=== PATIENT | female | born 1990 | race Caucasian/White ===

== ENCOUNTER 2017-12-08 08:48 | Emergency (ER) | payer BC, SELFPAY ==
[2017-12-08 09:05] VITALS: BP 109/72; PULSE 68; RESP 20; TEMP 36.8; O2SAT 100; BMI 23.3
--- NOTE | 2017-12-08 09:13 | HMH.EDUTC ---
[facility] [place] Impression: URI (upper respiratory infection) Qualifiers: URI type: unspecified URI Qualified Code(s): J06.9 - Acute upper respiratory infection, unspecified Disposition: Home, Self-Care Condition on Discharge: Good Instructions: Sore Throat, DI for Cough -- Adult Additional Instructions: * Monitor Temp. Tylenol and/or Ibuprofen as needed. ER if fever is no less than 101 despite alternating Tylenol and Ibuprofen * Encourage fluids, water, Gatorade, powerade, pedialyte if /toddler/or child * Warm salt water gargles for throat irritation *Warm fluids *Sore throat lozenges *Sleep elevated *humidifier or vaporizer Lots of rest Increase fluids, water, Gatorade, powerade *Flonase 2 sprays each nostril daily but may take 2-3 days to notice improvement with it *Bromfed may cause drowsiness. Know how it effect you or your child. Before driving, caring for small children or sending your child to school *Your throat swab was sent to lab for culture. Those results area typically sent to your primary care physician. Be sure to follow up in 2-3 days if no improvement so they can review those results and treat if necessary If you dont have primary care I recommend you get one, but in the mean time you will have to return to a walk in clinic Follow up IMMEDIATELY for new or worsening of symptoms OR no noticeable improvement over the next 48-72 hours. 911 immediately for any life threatening symptoms such as chest pain or difficulty breathing Prescriptions: Brompheniramine/Pseudoephed/Dm [Bromfed DM Cough Syrup 5mL] 10 ml PO Q4HP PRN #300 ml PRN Reason: Cough Azithromycin [Z-Pacheco 250mg Tab] 250 mg PO UD DOSE PK #6 tab Fluticasone Propionate [Flonase 50mcg nasal spray 16gm] 2 spr NS DAILY #1 bottle predniSONE [Prednisone 20mg Tab] 20 mg PO BID #10 tab Forms: Work/School Release Time of Disposition: 09:20 Medical Decision Making - Medical Records Medical records reviewed: Yes: I reviewed the patient's medical records. Vital Signs: 12/08/17 09:05 Temperature 98.2 F Temperature Source Temporal Artery Scan Pulse Rate [Right] 68 Respiratory Rate 20 Blood Pressure [Right Arm] 109/72 Blood Pressure Mean [Right Arm] 84 Blood Pressure Source [Right Arm] Automatic Cuff Blood Pressure Position [Right Arm] Sitting 02 Sat by Pulse Oximetry 100 Oxygen Delivery Method Room Air - Michele Inquiry Pt receiving controlled substance: No Michele was queried for this patient: No [facility] [place] - General Stated complaint: sore throat Mode of Arrival: Ambulatory Source of Information: Patient Limitations: No Limitations Description of Symptoms (Recalled from Triage Doc. by RN): sore throat x3 days HEENT Symptoms (Recalled from RN notes): Yes Resp Symptoms (Recalled from RN notes): No Skin Symptoms (Recalled from RN notes): No MS Symptoms (Recalled from RN notes): No Functional Status (Recalled from RN notes): n - History of Present Illness Provider Complaint: Patient state that her son tested positive for strep throat last week State that for the last three day she has had a sore scratchy throat State that her throat feels raw and irritated states that she noticed it seems worse at night and been having some sinus drainage States don't thinks she has had a fever but has had chills - Related Data Previous Rx's Medication Instructions Recorded Azithromycin [Z-Pacheco 250mg Tab] 250 mg PO UD DOSE PK #6 tab 12/08/17 Brompheniramine/Pseudoephed/Dm 10 ml PO Q4HP PRN #300 ml 12/08/17 [Bromfed DM Cough Syrup 5mL] Fluticasone Propionate [Flonase 2 spr NS DAILY #1 bottle 12/08/17 50mcg nasal spray 16gm] predniSONE [Prednisone 20mg 20 mg PO BID #10 tab 12/08/17 Tab] Allergies Allergy/AdvReac Type Severity Reaction Status Date / Time No Known Allergies Allergy Verified 12/08/17 09:08 - Worker's Comp Is this a Worker's Comp case?: No [facility] History I have reviewed the patient's past medical his
--- NOTE | 2017-12-08 09:16 | ED_ITS ---
[facility] [place] Clinical Impression: URI (upper respiratory infection) Qualifiers: URI type: unspecified URI Qualified Code(s): J06.9 - Acute upper respiratory infection, unspecified Disposition: Home, Self-Care Condition on Discharge: Good Instructions: Sore Throat, DI for Cough -- Adult Additional Instructions: * Monitor Temp. Tylenol and/or Ibuprofen as needed. ER if fever is no less than 101 despite alternating Tylenol and Ibuprofen * Encourage fluids, water, Gatorade, powerade, pedialyte if /toddler/or child * Warm salt water gargles for throat irritation *Warm fluids *Sore throat lozenges *Sleep elevated *humidifier or vaporizer Lots of rest Increase fluids, water, Gatorade, powerade *Flonase 2 sprays each nostril daily but may take 2-3 days to notice improvement with it *Bromfed may cause drowsiness. Know how it effect you or your child. Before driving, caring for small children or sending your child to school *Your throat swab was sent to lab for culture. Those results area typically sent to your primary care physician. Be sure to follow up in 2-3 days if no improvement so they can review those results and treat if necessary If you don? t have primary care I recommend you get one, but in the mean time you will have to return to a walk in clinic Follow up IMMEDIATELY for new or worsening of symptoms OR no noticeable improvement over the next 48-72 hours. 911 immediately for any life threatening symptoms such as chest pain or difficulty breathing Prescriptions: Brompheniramine/Pseudoephed/Dm [Bromfed DM Cough Syrup 5mL] 10 ml PO Q4HP PRN # 300 ml PRN Reason: Cough Azithromycin [Z-Pacheco 250mg Tab] 250 mg PO UD DOSE PK #6 tab Fluticasone Propionate [Flonase 50mcg nasal spray 16gm] 2 spr NS DAILY #1 bottle predniSONE [Prednisone 20mg Tab] 20 mg PO BID #10 tab Forms: Work/School Release Time of Disposition: 09:20 Medical Decision Making - Medical Records Medical records reviewed: Yes: I reviewed the patient's medical records. Vital Signs: 12/08/17 09:05 Temperature 98.2 F Temperature Source Temporal Artery Scan Pulse Rate [Right] 68 Respiratory Rate 20 Blood Pressure [Right Arm] 109/72 Blood Pressure Mean [Right Arm] 84 Blood Pressure Source [Right Arm] Automatic Cuff Blood Pressure Position [Right Arm] Sitting 02 Sat by Pulse Oximetry 100 Oxygen Delivery Method Room Air - Michele Inquiry Pt receiving controlled substance: No Michele was queried for this patient: No [facility] [place] - General Stated complaint: sore throat Mode of Arrival: Ambulatory Source of Information: Patient Limitations: No Limitations Description of Symptoms (Recalled from Triage Doc. by RN): sore throat x3 days HEENT Symptoms (Recalled from RN notes): Yes Resp Symptoms (Recalled from RN notes): No Skin Symptoms (Recalled from RN notes): No MS Symptoms (Recalled from RN notes): No Functional Status (Recalled from RN notes): n - History of Present Illness Provider Complaint: Patient state that her son tested positive for strep throat last week State that for the last three day she has had a sore scratchy throat State that her throat feels raw and irritated states that she noticed it seems worse at night and been having some sinus drainage States don't thinks she has had a fever but has had chills - Related Data Previous Rx's Medication Instructions Recorded Azithromycin [Z-Pacheco 250mg Tab] 250 mg PO UD DOSE PK #6 tab 12/08/17 Br
[2017-12-08 09:26] VITALS: BP 110/88; PULSE 80; RESP 18; TEMP 37.1
[2017-12-08 10:12] LABS: UTC Strep Screen (Rapid) Negative (Negative)
== END 2017-12-08 09:33 | disposition home or self-care (01) ==
PROVIDERS: Emergency Provider Nurse Practitioner
DX: J06.9 Acute upper respiratory infection, unspecified (principal)
CPT/HCPCS: 87880; 99202

== ENCOUNTER 2021-06-04 14:29 | Emergency (ER) | payer BC, OTHER, SELFPAY ==
[2021-06-04 15:48] VITALS: BP 120/69; PULSE 74; RESP 12; TEMP 36.7; O2SAT 100; BMI 21.9
--- NOTE | 2021-06-04 15:57 | HMH.EDUTC ---
[facility] [place] Disposition Clinical Impression: URI (upper respiratory infection) Qualifiers: URI type: unspecified URI Qualified Code(s): J06.9 - Acute upper respiratory infection, unspecified Disposition: Home, Self-Care Condition on Discharge: Good Instructions: DI for COVID-19 (Suspected or Confirmed ), Coronavirus Disease 2019, Preventing the Spread of Coronavirus Discharge Instructions, Sore Throat Additional Instructions: *Monitor Temp, Over the counter Motrin or Tylenol as directed/as needed Tylenol every 4 hours and Motrin every 6 hours (as long as your family doctor has told you that you can take it) for fever or pain. and straight to ER if unable to lower temp less than 101.0 after medication given *Warm salt water gargles may help to soothe the throat *Throat Lozenges *Warm fluids like tea with honey may help to soothe the throat *Sleep elevated *Humidifier/Vaporizer *Flonase 2 sprays in each nostril daily but be aware that it may take 2-3 days before you notice improvement Follow up IMMEDIATELY for new or worsening symptoms or no Noticeable improvement over the next 48-72 hours. 911 for difficulty breathing or swallowing You were tested for today for COVID19 your test result should be back in the next 24-48 hours, you may call to the [facility] to see if your test results are back in the next 48 hours [phone] [facility] hours are 9am-9pm You was given a handout with instructions for Self Quarantine and Self isolation for while you wait on test results and what to do if they are positive If you are positive the Health Dept will be contacting you also Make sure to take your Vitamins Vit. C Vit D and Zinc if you can take them Referrals: Provider,Referral, [Primary Care Provider] - As needed Forms: Work/School Release Time of Disposition: 16:02 Medical Decision Making - Michele Inquiry Pt receiving controlled substance: No Michele was queried for this patient: No Vital Signs: 06/04/21 15:48 Temperature 98.1 F Temperature Source Oral Pulse Rate [Left] 74 Respiratory Rate 12 Blood Pressure [Right Arm] 120/69 Blood Pressure Mean [Right Arm] 86 02 Sat by Pulse Oximetry 100 Orders (Tests/Meds): ORDERS Category Date Time Status Covid-19 Nasal PCR ([facility]) Routine Lab 06/04/21 15:56 Ordered Medical Decision Narrative: Patient declined strep test [facility] [place] HPI - General Stated complaint: covid exposure Time Seen by Provider: 06/04/21 15:58 Mode of Arrival: Ambulatory Source of Information: Patient Limitations: No Limitations Description of Symptoms (Recalled from Triage Doc. by RN): pt was exposed to covid positive pt 05/30. pt has a sore throat and congestion. pt is 8 weeks . 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 States that she has been having sore irritated throat and nasal congestion States that she wanted to get tested for COVID - Related Data Previous Rx's Medication Instructions Recorded Azithromycin [Z-Pacheco 250mg Tab*] 250 mg PO UD DOSE PK #6 tab 09/25/19 Brompheniramine/Pseudoephed/Dm 5 ml PO Q6HP PRN #240 syrup 09/25/19 [Bromfed Dm Cough Syrup] predniSONE [Deltasone 10mg tablet] 10 mg PO BID 3 Days #6 tab 09/25/19 Allergies Allergy/AdvReac Type Severity Reaction Status Date / Time No Known Allergies Allergy Verified 03/06/18 11:51 - Worker's Comp Is this a Worker's Comp case?: No [facility] History - Hepatitis A Screen Drug use history?: No High risk sexual behaviors?: No History of sexually transmitted infection?: No Currently employed?: No Childcare worker?: N
[2021-06-04 16:04] VITALS: BP 120/69; PULSE 74; RESP 12; TEMP 36.7
== END 2021-06-04 16:10 | disposition home or self-care (01) ==
PROVIDERS: Emergency Provider Nurse Practitioner
DX: J06.9 Acute upper respiratory infection, unspecified (principal); Z20.822 Contact with and (suspected) exposure to COVID-19; Z3A.08 8 weeks gestation of pregnancy
CPT/HCPCS: 99202; G0463; U0003

== ENCOUNTER 2024-07-17 09:42 | Outpatient (CLI) | payer OTHER, SELFPAY ==
[2024-07-17 10:17] LABS: Eosinophils # 0.1 K/mm3 (0.0-0.4); Eosinophils % 1.6 % (0.1-12.0); Hematocrit 40.7 % (37.0-47.0); Hemoglobin 13.6 g/dL (12.2-16.2); Lymphocytes # 1.1 K/mm3 (0.7-4.5); Mean Corpuscular HGB Conc 33.5 g/dL (31.8-35.4); Mean Corpuscular Hemoglobin 31.2 pg (27.0-31.2); Mean Corpuscular Volume 93.1 fl (81-99); Mean Platelet Volume 9.5 fl (7.4-10.4); Monocytes # 0.2 K/mm3 (0.1-1.0); Monocytes % 5.2 % (1.7-9.3); Neutrophils # 1.6 K/mm3 (1.8-7.8); Neutrophils % 54.3 % (37.0-80.0); Platelet Count 170 K/mm3 (142-424); Red Blood Count 4.37 M/mm3 (4.20-5.40); Red Cell Distribution Width 13.2 % (11.5-17.5)
[2024-07-17 10:22] LABS: Hemoglobin A1C 4.9 % (4.0-6.0)
[2024-07-17 10:26] LABS: Alanine Aminotransferase 17 U/L (12-78); Albumin Level 4.2 g/dl (3.5-5.0); Albumin/Globulin Ratio 1.7 (1.1-1.8); Alkaline Phosphatase 47 U/L (38-126); Aspartate Amino Transferase 27 U/L (14-36); Bilirubin,Total 0.7 mg/dl (0.2-1.3); Blood Urea Nitrogen 13 mg/dl (7-17); Calcium 9.2 mg/dl (8.4-10.2); Carbon Dioxide 27 mmol/L (22.0-30.0); Chloride 105 mmol/L (98-107); Chol/HDL Ratio 2.6 (1-3.5); Cholesterol 240 mg/dl (140-200); Estimated Glomerular Filt Rate 114 ml/min (>60); GFR (African American) 138 ML/MIN (>60); Globulin 2.5 g/dL (1.3-3.2); Glucose 91 mg/dl (74-100); HDL Cholesterol 93 mg/dl (40-60); Sodium 135 mmol/L (136-145); Total Protein,Serum 6.7 g/dl (6.3-8.2); Triglycerides 92 mg/dl (30-150); VLDL Cholesterol 18 mg/dL (0-40)
[2024-07-17 10:37] LABS: Direct LDL Cholesterol 112.62 mg/dL (100-129)
[2024-07-17 10:57] LABS: Thyroid Stimulating Hormone 0.89 uIU/mL (0.465-4.68)
== END 2024-07-17 23:59 | disposition home or self-care (01) ==
LOC: LAB 09:43
PROVIDERS: PCP Internal Medicine; Visit Provider Internal Medicine
DX: Z00.00 Encounter for general adult medical examination without abnormal findings (principal); Z13.1 Encounter for screening for diabetes mellitus; R53.83 Other fatigue
CPT/HCPCS: 36415; 80050; 80053; 80061; 82306; 83036; 84443; 85025